=== PATIENT | male | born 1970 | race Caucasian/White ===

== ENCOUNTER 2016-12-13 08:08 | Emergency (ER) | payer MEDICAID, OTHER ==
[~2016-12-13] VITALS: Ht 172.7 cm; Wt 72.7 kg
[2016-12-13] MEDS ORDERED: GENTAMICIN 0.3% OPHTH SOL 5 ML BTL OD ONE (09:00)
[2016-12-13] MEDS ORDERED: TETRACAINE 0.5% OPHTH SOLN 4ML OD ONE (09:00)
[2016-12-13] MEDS ORDERED: FLUORESCEIN OPHTH 1 MG STRIP OD ONE (09:00)
[2016-12-13] MEDS ORDERED: GENT3OPD OD (09:03)
[2016-12-13 09:24] VITALS: BP 149/89
== END 2016-12-13 09:25 | disposition home or self-care (01) ==
LOC: M ED 08:08
DX: T15.01XA Foreign body in cornea, right eye, initial encounter (principal); X58.XXXA Exposure to other specified factors, initial encounter; Y92.89 Other specified places as the place of occurrence of the external cause; Y93.H9 Activity, other involving exterior property and land maintenance, building and construction; Y99.8 Other external cause status; Z87.891 Personal history of nicotine dependence

== ENCOUNTER 2017-11-25 10:38 | Emergency (ER) | payer OTHER | END 2017-11-25 15:26 | disposition home or self-care (01) | LOC: M ED 10:38 | DX: S72.431A Displaced fracture of medial condyle of right femur, initial encounter for closed fracture (principal); X50.9XXA Other and unspecified overexertion or strenuous movements or postures, initial encounter; Y92.89 Other specified places as the place of occurrence of the external cause; F17.210 Nicotine dependence, cigarettes, uncomplicated | CPT/HCPCS: 73564 ==

== ENCOUNTER 2017-12-19 22:04 | Emergency (ER) | payer OTHER ==
[2017-12-19 22:55] LABS: HEMATOCRIT 44.8 % (42.0-52.0); HEMOGLOBIN 15.4 g/dl (13.5-17.5); MEAN CORPUSCULAR HEMOGLOBIN 32.2 pg (27.0-33.0); MEAN CORPUSCULAR HGB CONC 34.4 g/dl (32.0-36.5); MEAN CORPUSCULAR VOLUME 93.7 fl (80.0-96.0); PLATELET COUNT, AUTOMATED 272 10^3/uL (150-450); RED BLOOD COUNT 4.78 10^6/uL (4.30-6.10); RED CELL DISTRIBUTION WIDTH 13.9 % (11.5-14.5); WHITE BLOOD COUNT 8.7 10^3/uL (4.0-10.0)
[2017-12-19 23:16] LABS: ALBUMIN 3.9 GM/DL (3.2-5.2); ALBUMIN/GLOBULIN RATIO 1.03 (1.00-1.93); ALKALINE PHOSPHATASE 83 U/L (45-117); ALT/SGPT 21 U/L (12-78); ANION GAP 8 MEQ/L (8-16); AST/SGOT 17 U/L (7-37); BILIRUBIN,DIRECT < 0.1 MG/DL (0.0-0.2); BILIRUBIN,TOTAL 0.2 MG/DL (0.2-1.0); BLOOD UREA NITROGEN 10 MG/DL (7-18); CALCIUM LEVEL 8.6 MG/DL (8.5-10.1); CARBON DIOXIDE LEVEL 26 MEQ/L (21-32); CHLORIDE LEVEL 108 MEQ/L (98-107); ETHYL ALCOHOL (ETHANOL) 0.295 % (0.000-0.010); GLOMERULAR FILTRATION RATE > 60.0 (>60); GLUCOSE, FASTING 113 MG/DL (70-100); POTASSIUM SERUM 4.1 MEQ/L (3.5-5.1); SALICYLATE LEVEL 2.6 MG/DL (5.0-30.0); SODIUM LEVEL 142 MEQ/L (136-145); TOTAL PROTEIN 7.7 GM/DL (6.4-8.2)
[2017-12-19 23:19] LABS: ACETAMINOPHEN LEVEL < 2.0 UG/ML (10.0-30.0)
[2017-12-19 23:25] LABS: AMPHETAMINES LEVEL URINE NEGATIVE (NEGATIVE); BARBITURATES URINE NEGATIVE (NEGATIVE); BENZODIAZEPINES URINE NEGATIVE (NEGATIVE); CANNABINOIDS URINE NEGATIVE (NEGATIVE); COCAINE METABOLITE URINE NEGATIVE (NEGATIVE); METHADONE URINE NEGATIVE (NEGATIVE); OPIATES URINE NEGATIVE (NEGATIVE); PHENCYCLIDINE URINE NEGATIVE (NEGATIVE)
== END 2017-12-20 08:31 | disposition home or self-care (01) ==
LOC: M ED 22:04
DX: F10.129 Alcohol abuse with intoxication, unspecified (principal); Z72.0 Tobacco use
CPT/HCPCS: 80320

== ENCOUNTER 2018-02-10 11:40 | Emergency (ER) | payer OTHER | END 2018-02-10 14:05 | disposition home or self-care (01) | LOC: M ED 11:40 | DX: J01.90 Acute sinusitis, unspecified (principal); Z72.0 Tobacco use; Z82.49 Family history of ischemic heart disease and other diseases of the circulatory system | CPT/HCPCS: 71046 ==

== ENCOUNTER 2018-05-19 09:55 | Emergency (ER) | payer OTHER ==
[2018-05-19] MEDS: KETOROLAC 60 MG/2 ML VIAL (J1885) IM (11:36)
== END 2018-05-19 11:43 | disposition home or self-care (01) ==
LOC: M ED 09:55
DX: S46.002A Unspecified injury of muscle(s) and tendon(s) of the rotator cuff of left shoulder, initial encounter (principal); X58.XXXA Exposure to other specified factors, initial encounter; Y92.018 Other place in single-family (private) house as the place of occurrence of the external cause; F17.210 Nicotine dependence, cigarettes, uncomplicated
CPT/HCPCS: J1885

== ENCOUNTER 2018-07-08 11:16 | Emergency (ER) | payer OTHER ==
[~2018-07-08] VITALS: Ht 172.7 cm; Wt 66.8 kg
[~2018-07-08 11:16] MED LIST: CEFD300CAP PO; CLAR5TAB7 PO; CYCL10TA PO; DICL75TA PO; GENT3OPD OD
[2018-07-08] MEDS ORDERED: ONDANSETRON 4 MG ORAL DISINTEGRATING TAB (Q0162 PER 1MG) PO ONE (11:30)
--- NOTE | 2018-07-08 11:50 | REP ---
Chest two views HISTORY: Cough Comparison: 02/10/2018 The lungs are clear. The heart is normal in size. The pulmonary vasculature is normal in appearance. The bony structure is intact. IMPRESSION: No acute disease. Electronically Signed by Ector Amaya MD 07/08/2018 11:41 A
[2018-07-08] MEDS ORDERED: MUCI600T37 PO (14:08)
[2018-07-08] MEDS ORDERED: IBUP-1022 PO (14:08)
[2018-07-08] MEDS ORDERED: TESS100C PO (14:08)
[2018-07-08 14:16] VITALS: BP 156/89
--- NOTE | 2018-07-09 17:32 | ECGEPIP ---
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
== END 2018-07-08 14:17 | disposition home or self-care (01) ==
LOC: M ED 11:16
DX: J20.8 Acute bronchitis due to other specified organisms (principal); F17.210 Nicotine dependence, cigarettes, uncomplicated
CPT/HCPCS: 71046; 93005; 99284; Q0162

== ENCOUNTER → 2019-01-23 | Outpatient (CLI) | payer OTHER ==
[~2019-01-23] MED LIST changes: +AMLO5TAB6 PO; +GENT0.3S36 OD; -GENT3OPD OD; +IBUP-1022 PO; +LEVO25TA5 PO; +LISI-542 PO; +MUCI600T37 PO; +TESS100C PO
== END ==
LOC: M OUTALCOH 08:03
PROVIDERS: ATTEND Psychiatry & Neurology Psychiatry
DX: F10.20 Alcohol dependence, uncomplicated (principal)

== ENCOUNTER 2019-02-13 11:00 | Outpatient (RCR) | payer OTHER ==
[~2019-02-13 11:00] MED LIST changes: -AMLO5TAB6 PO; -LEVO25TA5 PO; -LISI-542 PO
== END 2019-02-14 ==
LOC: M OUTALCOH 11:00
PROVIDERS: ATTEND Psychiatry & Neurology Psychiatry
DX: F10.20 Alcohol dependence, uncomplicated (principal); Z72.0 Tobacco use

== ENCOUNTER 2019-03-13 13:00 | Outpatient (RCR) | payer OTHER | END 2019-03-16 | LOC: M OUTALCOH 13:00 | PROVIDERS: ATTEND Psychiatry & Neurology Psychiatry | DX: F10.20 Alcohol dependence, uncomplicated (principal); Z72.0 Tobacco use ==

== ENCOUNTER → 2019-04-02 | Outpatient (REF) | payer OTHER ==
[2019-04-02 12:57] LABS: BASO # 0.1 10^3/uL (0.0-0.2); BASO % 0.8 % (0.0-1.0); EOS # 0.1 10^3/uL (0.0-0.5); EOS % 1.7 % (0.0-3.0); HEMATOCRIT 42.9 % (42.0-52.0); HEMOGLOBIN 14.5 g/dl (13.5-17.5); LYMPH # 1.9 10^3/uL (1.5-5.0); LYMPH % 28.1 % (24.0-44.0); MEAN CORPUSCULAR HEMOGLOBIN 32.1 pg (27.0-33.0); MEAN CORPUSCULAR HGB CONC 33.8 g/dl (32.0-36.5); MEAN CORPUSCULAR VOLUME 94.9 fl (80.0-96.0); MONO # 0.6 10^3/uL (0.0-0.8); MONO % 8.4 % (0.0-5.0); NEUTROPHILS % 60.8 % (36.0-66.0); PLATELET COUNT, AUTOMATED 246 10^3/uL (150-450); RED BLOOD COUNT 4.52 10^6/uL (4.30-6.10); WHITE BLOOD COUNT 6.6 10^3/uL (4.0-10.0)
[2019-04-02 13:27] LABS: ALBUMIN 3.8 GM/DL (3.2-5.2); ALT/SGPT 21 U/L (12-78); BILIRUBIN,TOTAL 0.7 MG/DL (0.2-1.0); BLOOD UREA NITROGEN 11 MG/DL (7-18); CALCIUM LEVEL 8.9 MG/DL (8.5-10.1); CARBON DIOXIDE LEVEL 24 MEQ/L (21-32); CHLORIDE LEVEL 106 MEQ/L (98-107); CHOLESTEROL LEVEL 149 MG/DL (<200); CHOLESTEROL RISK RATIO 3.921 (<5); CREATININE FOR GFR 0.89 MG/DL (0.70-1.30); FREE T4 0.95 NG/DL (0.76-1.46); GLOMERULAR FILTRATION RATE > 60.0 (>56); GLUCOSE, FASTING 98 MG/DL (70-100); HDL CHOLESTEROL 38 MG/DL (>40); LDL CHOLESTEROL 88 MG/DL (<100); NON-HDL-C 111 MG/DL; POTASSIUM SERUM 4.5 MEQ/L (3.5-5.1); SODIUM LEVEL 136 MEQ/L (136-145); TRIGLYCERIDES LEVEL 113 MG/DL (<150)
== END ==
LOC: M SFHCPLAZ 10:33
PROVIDERS: ATTEND Physician Assistant Medical
DX: I10 Essential (primary) hypertension (principal); E03.9 Hypothyroidism, unspecified; Z13.220 Encounter for screening for lipoid disorders; Z12.5 Encounter for screening for malignant neoplasm of prostate

== ENCOUNTER → 2019-04-13 | Outpatient (REF) | payer OTHER | LOC: M SFHCPLAZ 08:42 | PROVIDERS: ATTEND Physician Assistant Medical | DX: E03.9 Hypothyroidism, unspecified (principal) ==

== ENCOUNTER 2019-04-15 16:00 | Outpatient (RCR) | payer OTHER | END 2019-04-16 | LOC: M OUTALCOH 16:00 | PROVIDERS: ATTEND Psychiatry & Neurology Psychiatry | DX: F10.20 Alcohol dependence, uncomplicated (principal); Z72.0 Tobacco use ==

== ENCOUNTER 2019-05-13 15:58 | Outpatient (RCR) | payer OTHER | END 2019-05-16 | LOC: M OUTALCOH 15:58 | PROVIDERS: ATTEND Psychiatry & Neurology Psychiatry | DX: F10.20 Alcohol dependence, uncomplicated (principal); Z72.0 Tobacco use ==

== ENCOUNTER 2019-06-15 16:00 | Outpatient (RCR) | payer OTHER ==
[~2019-06-15 16:00] MED LIST changes: +AMLO5TAB6 PO; +LEVO25TA5 PO; +LISI-542 PO
== END 2019-06-16 ==
LOC: M OUTALCOH 16:00
PROVIDERS: ATTEND Psychiatry & Neurology Psychiatry
DX: F10.20 Alcohol dependence, uncomplicated (principal); Z72.0 Tobacco use

== ENCOUNTER 2019-06-23 08:55 | Day surgery (SDC) | payer OTHER ==
[~2019-06-23] VITALS: Ht 172.7 cm; Wt 62.5 kg
[2019-06-23] MEDS ORDERED: NS 1,000 ML IV ONE (09:00)
[2019-06-23] MEDS ORDERED: LIDOCAINE 2% INJ 100 MG/5 ML SDV (FOR ANES.) As Ordered ONE (09:09)
[2019-06-23] MEDS ORDERED: propofoL 200 MG/20 ML VIAL As Ordered ONE ×2 (09:40→10:44)
--- NOTE | 2019-06-23 11:22 | ROOR ---
Patient Name: Romeo Tinoco Procedure Date: 06/23/2019 10:31 AM Date of : 1970 Age: 48 Room: [facility] Gender: Male Note Status: Finalized Procedure: Colonoscopy Indications: Screening for colorectal malignant neoplasm Providers: Alejandro Crane MD Referring MD: Cat UNGER Requesting Provider: Medicines: Monitored Anesthesia Care Complications: No immediate complications. Procedure: Pre-Anesthesia Assessment: - Prior to the procedure, a History and Physical was performed, and patient medications and allergies were reviewed. The patient is competent. The risks and benefits of the procedure and the sedation options and risks were discussed with the patient. All questions were answered and informed consent was obtained. Patient identification and proposed procedure were verified by the physician, the nurse and the anesthesiologist in the procedure room. Mental Status Examination: alert and oriented. Airway Examination: normal oropharyngeal airway and neck mobility. Respiratory Examination: clear to auscultation. CV Examination: normal. Prophylactic Antibiotics: The patient does not require prophylactic antibiotics. Prior Anticoagulants: The patient has taken no previous anticoagulant or antiplatelet agents. ASA Grade Assessment: II - A patient with mild systemic disease. After reviewing the risks and benefits, the patient was deemed in satisfactory condition to undergo the procedure. The anesthesia plan was to use monitored anesthesia care (MAC). Immediately prior to administration of medications, the patient was re-assessed for adequacy to receive sedatives. The heart rate, respiratory rate, oxygen saturations, blood pressure, adequacy of pulmonary ventilation, and response to care were monitored throughout the procedure. The physical status of the patient was re-assessed after the procedure. The Colonoscope was introduced through the anus and advanced to the terminal ileum, with identification of the appendiceal orifice and IC valve. The colonoscopy was performed without difficulty. The patient tolerated the procedure well. The quality of the bowel preparation was good. The terminal ileum, ileocecal valve, appendiceal orifice, and rectum were photographed. Scope insertion time was 3 minutes. Scope withdrawal time was 11 minutes. The total duration of the procedure was 14 minutes. Findings: The perianal and digital rectal examinations were normal. The terminal ileum appeared normal. Two sessile polyps were found in the transverse colon. The polyps were 3 to 5 mm in size. These polyps were removed with a cold biopsy forceps. Resection and retrieval were complete. Verification of patient identification for the specimen was done by the physician and nurse using the patient's name, date and medical record number. Estimated blood loss was minimal. Multiple small and large-mouthed diverticula were found from sigmoid to transverse colon. There was no evidence of diverticular bleeding. Non-bleeding external and internal hemorrhoids were found during retroflexion. The hemorrhoids were medium-sized. Impression: - The examined portion of the ileum was normal. - Two 3 to 5 mm polyps in the transverse colon, removed with a cold biopsy forceps. Resected and retrieved. - Moderate diverticulosis from sigmoid to transverse colon. There was no evidence of diverticular bleeding. - Non-bleeding external and internal hemorrhoids. Recommendation: - Patient has a contact number available for emergencies. The signs and symptoms of potential delayed complications were discussed with the patient. Return to normal activities tomorrow. Written discharge instructions were provided to the patient. - High fiber diet. - Continue present medications. - Await pathology results. - Repeat colonoscopy in 5-10 years for surveillance based on pathology results. - Telephone GI clinic for pathology results in 2 weeks. - Telephone GI clinic if symptomatic in 1 day. - Return to primary care physician. Alejandro Crane MD Alejandro Crane MD 06/23/2019 11:21:54 AM Electronically signed by Alejandro Crane MD Number of Addenda: 0 Note Initiated On: 06/23/2019 10:31 AM Estimated Blood Loss: Estimated blood loss was minimal.
[2019-06-23 11:30] VITALS: BP 122/79
== END 2019-06-23 12:10 | disposition home or self-care (01) ==
LOC: M OPP 08:55
PROVIDERS: ATTEND Internal Medicine Gastroenterology
DX: Z12.11 Encounter for screening for malignant neoplasm of colon (principal); D12.3 Benign neoplasm of transverse colon; K57.30 Diverticulosis of large intestine without perforation or abscess without bleeding; K64.8 Other hemorrhoids; Z79.899 Other long term (current) drug therapy; F17.210 Nicotine dependence, cigarettes, uncomplicated

== ENCOUNTER → 2019-06-30 | Outpatient (CLI) | payer OTHER ==
--- NOTE | 2019-07-01 04:14 | REPPI ---
Clinical: Viral pneumonia and upper respiratory tract infection . Comparison: 07/08/2018 . Technique: PA and lateral. Findings: The mediastinum and cardiac silhouette are normal. The lung bolanos are clear and without acute consolidation, effusion, or pneumothorax. The skeletal structures are intact and normal. Impression: 1. No acute cardiopulmonary process. Electronically Signed by Erick Olvera MD 07/01/2019 04:06 A
== END ==
LOC: M PLAIMG 09:07
PROVIDERS: ATTEND Physician Assistant Medical
DX: J06.9 Acute upper respiratory infection, unspecified (principal)

== ENCOUNTER 2019-07-13 08:50 | Outpatient (RCR) | payer OTHER | END 2019-07-17 | LOC: M OUTALCOH 08:50 | PROVIDERS: ATTEND Psychiatry & Neurology Psychiatry | DX: F10.20 Alcohol dependence, uncomplicated (principal); Z72.0 Tobacco use ==

== ENCOUNTER → 2019-07-14 | Outpatient (CLI) | payer OTHER ==
--- NOTE | 2019-07-15 04:18 | REP ---
Clinical: Adenopathy. Technique: Real time browning scale ultrasound examination using linear high frequency transducer. Findings: Ultrasound examination along the right and left side of the neck demonstrates no obvious adenopathy, fluid collection or mass lesion. Impression: No obvious abnormality. No obvious cervical adenopathy. Electronically Signed by Erick Olvera MD 07/15/2019 04:10 A
== END ==
LOC: M RAD 16:30
PROVIDERS: ATTEND Physician Assistant Medical
DX: I89.0 Lymphedema, not elsewhere classified (principal)

== ENCOUNTER 2019-07-30 15:57 | Outpatient (RCR) | payer OTHER | END 2019-08-15 | LOC: M OUTALCOH 15:57 | PROVIDERS: ATTEND Psychiatry & Neurology Addiction Medicine | DX: F10.20 Alcohol dependence, uncomplicated (principal); Z72.0 Tobacco use ==

== ENCOUNTER 2019-08-19 14:52 | Emergency (ER) | payer OTHER ==
[~2019-08-19] VITALS: Ht 172.7 cm; Wt 68.6 kg
--- NOTE | 2019-08-19 15:55 | REP ---
Left hand series: Four views. 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 Open fractures second through fourth. Findings: There is a soft tissue and bony tuft amputation of the second distal phalanx. There is a comminuted fracture of the second middle phalanx. There is some soft tissue gas but no soft tissue foreign body seen. The long finger shows a traumatic soft tissue amputation at the distal phalanx. There is a comminuted fracture of the distal tuft. Lateral film demonstrates some missing distal tuft bone along the palmar aspect. In addition, the long finger has a transverse fracture of the middle phalanx with associated swelling. There is soft tissue irregularity and swelling along the palmar aspect of the DIP joint and middle phalanx of the ring finger. No other fracture is evident. Impression: Traumatic soft tissue and bony amputation injuries of the index and long fingers with fractures of the index and long finger middle phalanges as well. Soft tissue injury to the ring finger. No opaque foreign body seen. Electronically Signed by Edis Parikh MD 08/19/2019 05:11 P
[2019-08-19] MEDS ORDERED: MORPHINE 4 MG/ML 1ML VIAL/SYRINGE (J2270) IV ONE (16:15)
[2019-08-19] MEDS ORDERED: ADACEL/BOOSTRIX VACCINE (DIPHTH/PERTUSS/ACELL/TETANUS)0.5ML SYR (90715) IM ONE (16:15)
[2019-08-19] MEDS ORDERED: ONDANSETRON 4MG/2ML VIAL (J2405) IV ONE (16:15)
[2019-08-19] MEDS ORDERED: ceFAZolin SOD 2 GM in IV 1 EA IV ONE (16:30)
[2019-08-19 16:54] LABS: HEMOGLOBIN 14.1 g/dl (13.5-17.5); MEAN CORPUSCULAR HEMOGLOBIN 31.9 pg (27.0-33.0); MEAN CORPUSCULAR HGB CONC 33.6 g/dl (32.0-36.5); PLATELET COUNT, AUTOMATED 289 10^3/uL (150-450); RED BLOOD COUNT 4.42 10^6/uL (4.30-6.10); WHITE BLOOD COUNT 6.2 10^3/uL (4.0-10.0)
[2019-08-19] MEDS ORDERED: LIDOCAINE 1% SDV 5 ML VIAL As Ordered ONE (16:58)
[2019-08-19] MEDS ORDERED: LIDOCAINE 1% MDV 20ML VIAL INFIL ONE (17:00)
[2019-08-19 17:16] LABS: BLOOD UREA NITROGEN 7 MG/DL (7-18); CARBON DIOXIDE LEVEL 27 MEQ/L (21-32); CHLORIDE LEVEL 106 MEQ/L (98-107); CREATININE FOR GFR 0.84 MG/DL (0.70-1.30); GLOMERULAR FILTRATION RATE > 60.0 (>56); GLUCOSE, FASTING 102 MG/DL (70-100); POTASSIUM SERUM 4.1 MEQ/L (3.5-5.1); SODIUM LEVEL 138 MEQ/L (136-145)
[2019-08-19] MEDS ORDERED: KEFL500C17 PO (18:04)
[2019-08-19] MEDS ORDERED: NORC1TAB7 PO (18:13)
[2019-08-19 18:29] VITALS: BP 124/76
--- NOTE | 2019-08-20 15:45 | CR ---
DATE OF CONSULTATION: 08/19/2019 CHIEF COMPLAINT: Left hand injury. HISTORY OF PRESENT ILLNESS: Romeo Tinoco is a 49-year-old right hand dominant male who was working with a snowblower this afternoon when the snowblower jammed. He was using a stick to try to repair the snowblower and unfortunately it sucked the stick in along with his glove. He sustained traumatic partial amputations to his index and middle finger. PHYSICAL EXAMINATION: GENERAL: Well-appearing, in no obvious distress. PULMONARY: Regular nonlabored breathing. CARDIOVASCULAR: Regular radial pulse on the left. MUSCULOSKELETAL: There is an amputation through the distal phalanx of the left index finger and an open fracture of the middle phalanx. There is some soft tissue loss over the volar tip of the finger. In the long finger, there is significant soft tissue loss over the volar distal phalanx but there is no exposed bone. There is also a laceration and open fracture over the middle phalanx. There is a smaller avulsion-type injury over the middle phalanx volarly of the ring finger as well. Fingers are all warm and well-perfused. Sensation is intact proximal to the level of the injury. IMAGING: Radiographs are reviewed. On the index finger, there is a partial fingertip amputation with exposed distal phalanx. There is a comminuted middle phalanx fracture which is open. On the middle, there is a fracture of the distal phalanx but bone is intact. There is also an open fracture of the middle phalanx. IMPRESSION: Left index and middle finger partial amputations with middle phalanx open fractures. PROCEDURE NOTE: After informed consent was obtained, digital blocks were performed to the index and middle fingers. The wounds were copiously irrigated with two liters of normal saline. Following this, I did trim back the exposed bone on the index finger and was able to close the fingertip on the index finger. There was some skin loss but adequate soft tissue in this region that I was able to get an adequate closure. I also closed the open fracture over the middle phalanx volarly. Again, there was some skin loss in this region but I was able to get an adequate closure. In regards to the long finger, there was no significant area of skin that I could close distally. However, there was no exposed bone so this was left to close by second intention. I did close the laceration over the middle phalanx fracture after it had been copiously irrigated and debrided. Adaptic was applied over the fingers and a sterile dressing was applied following this. The patient was then placed into a splint. He also received tetanus shot and IV antibiotics in the emergency room. PLAN: The patient will keep his hand elevated and keep his dressing clean, dry and intact. He will check his fingers for perfusion throughout the day and evening. He will call us or come to the emergency room (ER) if there are any concerns. He will need to remain on Keflex for a week. He will come in in two days for a wound check to see me. He will be given pain medications through the ER. ROLA
== END 2019-08-19 18:34 | disposition home or self-care (01) ==
LOC: M ED 14:52
DX: S61.215A Laceration without foreign body of left ring finger without damage to nail, initial encounter (principal); S68.121A Partial traumatic metacarpophalangeal amputation of left index finger, initial encounter; S68.123A Partial traumatic metacarpophalangeal amputation of left middle finger, initial encounter; S62.623B Displaced fracture of middle phalanx of left middle finger, initial encounter for open fracture; S62.621B Displaced fracture of middle phalanx of left index finger, initial encounter for open fracture; W26.8XXA Contact with other sharp object(s), not elsewhere classified, initial encounter; Y92.018 Other place in single-family (private) house as the place of occurrence of the external cause; I10 Essential (primary) hypertension; E03.9 Hypothyroidism, unspecified; Z79.899 Other long term (current) drug therapy; Z79.890 Hormone replacement therapy; F17.210 Nicotine dependence, cigarettes, uncomplicated
CPT/HCPCS: 12041; 36415; 73130; 80048; 85027; 85730; 86850; 86900; 86901; 90471; 90715; 96365; 96375; 99284; J0690; J2270; J2405

== ENCOUNTER 2019-09-07 08:32 | Outpatient (RCR) | payer OTHER ==
[~2019-09-07 08:32] MED LIST changes: +KEFL500C17 PO; +NORC1TAB7 PO
== END 2019-09-15 ==
LOC: M OUTALCOH 08:32
PROVIDERS: ATTEND Psychiatry & Neurology Addiction Medicine
DX: F10.20 Alcohol dependence, uncomplicated (principal); Z72.0 Tobacco use

== ENCOUNTER 2019-09-25 14:00 | Outpatient (RCR) | payer OTHER ==
[~2019-09-25 14:00] MED LIST changes: +CYCL-707 PO; -CYCL10TA PO
== END 2019-10-15 ==
LOC: M OUTALCOH 14:00
PROVIDERS: ATTEND Psychiatry & Neurology Addiction Medicine
DX: F10.20 Alcohol dependence, uncomplicated (principal); Z72.0 Tobacco use

== ENCOUNTER → 2020-05-05 | Outpatient (REF) | payer MEDICAID ==
[~2020-05-05] MED LIST changes: +AMLO1TAB24 PO; -AMLO5TAB6 PO
[2020-05-05 11:45] LABS: BASO # 0.1 10^3/uL (0.0-0.2); BASO % 1.1 % (0.0-1.0); EOS # 0.1 10^3/uL (0.0-0.5); EOS % 1.4 % (0.0-3.0); HEMATOCRIT 46.2 % (42.0-52.0); HEMOGLOBIN 15.3 g/dl (13.5-17.5); LYMPH # 1.2 10^3/uL (1.5-5.0); LYMPH % 16.6 % (24.0-44.0); MEAN CORPUSCULAR HEMOGLOBIN 32.9 pg (27.0-33.0); MEAN CORPUSCULAR HGB CONC 33.1 g/dl (32.0-36.5); MEAN CORPUSCULAR VOLUME 99.4 fl (80.0-96.0); MONO # 0.8 10^3/uL (0.0-0.8); MONO % 10.6 % (0.0-5.0); NEUTROPHILS # 5.2 10^3/uL (1.5-8.5); NEUTROPHILS % 69.9 % (36.0-66.0); PLATELET COUNT, AUTOMATED 251 10^3/uL (150-450); RED BLOOD COUNT 4.65 10^6/uL (4.30-6.10); WHITE BLOOD COUNT 7.4 10^3/uL (4.0-10.0)
[2020-05-05 12:24] LABS: ALT/SGPT 19 U/L (12-78); BILIRUBIN,TOTAL 0.2 MG/DL (0.2-1.0); BLOOD UREA NITROGEN 18 MG/DL (7-18); CALCIUM LEVEL 9.6 MG/DL (8.5-10.1); CARBON DIOXIDE LEVEL 25 MEQ/L (21-32); CHLORIDE LEVEL 104 MEQ/L (98-107); CHOLESTEROL LEVEL 175 MG/DL (<200); CHOLESTEROL RISK RATIO 2.777 (<5); CREATININE FOR GFR 0.87 MG/DL (0.70-1.30); FREE T4 0.98 NG/DL (0.76-1.46); GLOMERULAR FILTRATION RATE > 60.0 (>56); GLUCOSE, FASTING 111 MG/DL (70-100); HDL CHOLESTEROL 63 MG/DL (>40); LDL CHOLESTEROL 99 MG/DL (<100); NON-HDL-C 112 MG/DL; SODIUM LEVEL 136 MEQ/L (136-145); TOTAL PROTEIN 7.6 GM/DL (6.4-8.2); TRIGLYCERIDES LEVEL 64 MG/DL (<150)
== END ==
LOC: M SFHCPLAZ 09:31
PROVIDERS: ATTEND Physician Assistant Medical
DX: E03.9 Hypothyroidism, unspecified (principal); I10 Essential (primary) hypertension; Z13.220 Encounter for screening for lipoid disorders; Z12.5 Encounter for screening for malignant neoplasm of prostate

== ENCOUNTER 2021-01-04 07:45 | Emergency (ER) | payer OTHER ==
[~2021-01-04] VITALS: Ht 172.7 cm; Wt 66.8 kg
[~2021-01-04 07:45] MED LIST changes: -LISI-542 PO; +LISI-898 PO
[2021-01-04] MEDS ORDERED: COMBIVENT RESPIMAT 100-20MCG INHALER 4GM INH ONE (08:20)
--- NOTE | 2021-01-04 08:30 | REP ---
INDICATION: DYSPNEA/COUGH. COMPARISON: 06/30/2019. TECHNIQUE: Single portable AP view of the chest was performed. FINDINGS: There is no acute infiltrate or pulmonary edema. Lungs are clear. The heart is not significantly enlarged. The mediastinal silhouette is unremarkable. The visualized osseous structures are intact. IMPRESSION: No acute pulmonary disease. <Electronically signed by Rafal Daniels > 01/04/21 [id number]
[2021-01-04 08:40] LABS: BASO # 0.1 10^3/uL (0.0-0.2); BASO % 0.8 % (0.0-1.0); EOS # 0.1 10^3/uL (0.0-0.5); EOS % 1.7 % (0.0-3.0); HEMATOCRIT 44.4 % (42.0-52.0); HEMOGLOBIN 14.9 g/dl (13.5-17.5); LYMPH # 1.3 10^3/uL (1.5-5.0); LYMPH % 18.2 % (24.0-44.0); MEAN CORPUSCULAR HEMOGLOBIN 32.7 pg (27.0-33.0); MEAN CORPUSCULAR HGB CONC 33.6 g/dl (32.0-36.5); MEAN CORPUSCULAR VOLUME 97.4 fl (80.0-96.0); MONO % 13.1 % (2.0-8.0); NEUTROPHILS # 4.8 10^3/uL (1.5-8.5); NEUTROPHILS % 65.9 % (36.0-66.0); RED BLOOD COUNT 4.56 10^6/uL (4.30-6.10); WHITE BLOOD COUNT 7.3 10^3/uL (4.0-10.0)
[2021-01-04 08:56] LABS: ALT/SGPT 30 U/L (12-78); BLOOD UREA NITROGEN 8 MG/DL (7-18); CARBON DIOXIDE LEVEL 27 MEQ/L (21-32); CHLORIDE LEVEL 106 MEQ/L (98-107); CK-MB VALUE MASS 1.2 NG/ML (<3.6); CPK CREATINE PHOSPHOKINASE 118 U/L (39-308); CREATININE FOR GFR 0.82 MG/DL (0.70-1.30); GLOMERULAR FILTRATION RATE > 60.0 (>56); GLUCOSE, FASTING 102 MG/DL (70-100); MB/CK RELATIVE INDEX 1.02 (< OR =4); POTASSIUM SERUM 3.6 MEQ/L (3.5-5.1); SODIUM LEVEL 140 MEQ/L (136-145)
[2021-01-04 08:57] LABS: ALBUMIN 3.9 GM/DL (3.2-5.2); BILIRUBIN,DIRECT 0.2 MG/DL (0.0-0.2); BILIRUBIN,TOTAL 0.7 MG/DL (0.2-1.0); NT-PRO BNP 138 PG/ML (<125); TOTAL PROTEIN 7.8 GM/DL (6.4-8.2); TROPONIN I < 0.02 NG/ML (< 0.10)
[2021-01-04 09:12] LABS: PLATELET COUNT, AUTOMATED 251 10^3/uL (150-450)
[2021-01-04] MEDS ORDERED: ISOVUE-370 76% 100ML VIAL As Ordered ONE (09:38)
[2021-01-04] MEDS ORDERED: IPRATROPIUM 0.5MG/ALBUTEROL 2.5MG INH SOL UD 3ML (DUONEB) NEB ONE (10:20)
--- NOTE | 2021-01-04 10:26 | REP ---
INDICATION: SOB. COMPARISON: Comparison portable chest x-ray from earlier this date.. TECHNIQUE: Contrast dose: 75 ML of Isovue [address] technique: Helical scanning is acquired and overlapping 1.5 mm and contiguous 3 mm axial images are reformatted. In addition, maximum intensity projection and multiplanar re-formation images are generated in sagittal and coronal imaging projections. FINDINGS: There is good opacification in the pulmonary arterial tree. There is no evidence of vessel cut off or filling defect to suggest pulmonary embolus. Homogeneous opacity is seen in the thoracic aorta. There is no evidence of aneurysm or dissection. There is no evidence of pleural or pericardial effusion. No hilar or mediastinal mass or adenopathy is observed. Lung window settings demonstrate no evidence of infiltrate. There is a single 3.4 mm noncalcified pulmonary nodule in a peribronchovascular position in the right upper lobe somewhat posteriorly. This projects on page 43 of 116 in series 402 of today's examination. No other pulmonary nodule is appreciated. In the upper abdomen, normal adrenals are observed. The visualized upper abdominal structures are unremarkable. No acute bony abnormality. IMPRESSION: No CT evidence of pulmonary embolus. There is a single 3 mm noncalcified pulmonary nodule in the right upper lobe. If this patient is considered at risk for pulmonary malignancy, repeat chest CT study could be performed in 1 year. Otherwise no active disease. <Electronically signed by Saran Parikh > 01/04/21 [id number]
[2021-01-04 10:57] VITALS: O2SAT 97
[2021-01-04 13:00] VITALS: BP 170/93
--- NOTE | 2021-01-04 17:24 | ECGEPIP ---
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
--- NOTE | 2021-01-07 06:27 | ED PDOC ---
Post-Departure Follow-Up cta chest faxed to [facility] for fu Dyan Gonsalez MD Jan 07, 2021 06:27
== END 2021-01-04 13:27 | disposition left against medical advice (07) ==
LOC: M ED 07:45
DX: R91.1 Solitary pulmonary nodule (principal); I10 Essential (primary) hypertension; E07.9 Disorder of thyroid, unspecified; F10.10 Alcohol abuse, uncomplicated; F17.210 Nicotine dependence, cigarettes, uncomplicated
CPT/HCPCS: 36415; 71045; 71275; 80048; 80076; 82550; 82553; 83880; 84443; 85025; 85379; 87798; 93005; 93041; 94640; 94760; 99285; Q9967

== ENCOUNTER 2021-10-24 08:18 | Emergency (ER) | payer MEDICAID, OTHER ==
[~2021-10-24] VITALS: Ht 172.7 cm; Wt 63.6 kg
[~2021-10-24 08:18] MED LIST changes: -LISI-898 PO; +LISI5TAB11 PO
[2021-10-24 10:53] VITALS: BP 158/105
== END 2021-10-24 10:54 | disposition home or self-care (01) ==
LOC: M ED 08:18
DX: S23.41XA Sprain of ribs, initial encounter (principal); W01.198A Fall on same level from slipping, tripping and stumbling with subsequent striking against other object, initial encounter; Y92.009 Unspecified place in unspecified non-institutional (private) residence as the place of occurrence of the external cause; Y93.9 Activity, unspecified; Y99.9 Unspecified external cause status; I10 Essential (primary) hypertension; F17.200 Nicotine dependence, unspecified, uncomplicated; Z79.899 Other long term (current) drug therapy

== ENCOUNTER → 2021-11-20 | Outpatient (CLI) | payer OTHER, MEDICAID ==
[2021-11-20 17:30] LABS: BASO # 0.1 10^3/uL (0.0-0.2); EOS % 0.5 % (0.0-3.0); HEMATOCRIT 42.5 % (42.0-52.0); HEMOGLOBIN 14.3 g/dl (13.5-17.5); LYMPH # 1.4 10^3/uL (1.5-5.0); LYMPH % 24.2 % (24.0-44.0); MEAN CORPUSCULAR HEMOGLOBIN 32.1 pg (27.0-33.0); MEAN CORPUSCULAR HGB CONC 33.6 g/dl (32.0-36.5); MEAN CORPUSCULAR VOLUME 95.5 fl (80.0-96.0); MONO # 0.5 10^3/uL (0.0-0.8); MONO % 8.3 % (2.0-8.0); NEUTROPHILS # 3.9 10^3/uL (1.5-8.5); NEUTROPHILS % 65.7 % (36.0-66.0); PLATELET COUNT, AUTOMATED 259 10^3/uL (150-450); RED BLOOD COUNT 4.45 10^6/uL (4.30-6.10); WHITE BLOOD COUNT 5.9 10^3/uL (4.0-10.0)
[2021-11-20 18:02] LABS: ALBUMIN 3.9 GM/DL (3.2-5.2); ALT/SGPT 23 U/L (12-78); BILIRUBIN,TOTAL 0.3 MG/DL (0.2-1.0); BLOOD UREA NITROGEN 15 MG/DL (7-18); CALCIUM LEVEL 9.5 MG/DL (8.5-10.1); CARBON DIOXIDE LEVEL 29 MEQ/L (21-32); CHLORIDE LEVEL 106 MEQ/L (98-107); CHOLESTEROL LEVEL 140 MG/DL (<200); CHOLESTEROL RISK RATIO 1.866 (<5); FREE T4 0.84 NG/DL (0.76-1.46); GLOMERULAR FILTRATION RATE > 60.0 (>56); GLUCOSE, FASTING 102 MG/DL (70-100); HDL CHOLESTEROL 75 MG/DL (>40); LDL CHOLESTEROL 45 MG/DL (<100); NON-HDL-C 65 MG/DL; POTASSIUM SERUM 4.7 MEQ/L (3.5-5.1); SODIUM LEVEL 141 MEQ/L (136-145); TOTAL PROTEIN 7.5 GM/DL (6.4-8.2); TRIGLYCERIDES LEVEL 99 MG/DL (<150)
== END ==
LOC: M PLALAB 14:23
PROVIDERS: ATTEND Nurse Practitioner Family
DX: I10 Essential (primary) hypertension (principal)

== ENCOUNTER → 2022-03-28 | Outpatient (REF) | payer OTHER, MEDICAID | LOC: M SFHCPLAZ 16:44 | PROVIDERS: ATTEND Physician Assistant | DX: R06.02 Shortness of breath (principal) ==

== ENCOUNTER 2022-04-16 16:08 | Emergency (ER) | payer MEDICAID, OTHER ==
[~2022-04-16] VITALS: Ht 172.7 cm; Wt 66.8 kg
[2022-04-16 16:09] VITALS: BP 168/94
[2022-04-16] MEDS ORDERED: NORCO, ANEXSIA 5/325MG TABLET (HYDROcodone/ACETAMINOPHEN) PO ONE (18:25)
[2022-04-16] MEDS ORDERED: PERC5TAB12 PO (20:19)
== END 2022-04-16 20:50 | disposition home or self-care (01) ==
LOC: M ED 16:08
DX: S92.002A Unspecified fracture of left calcaneus, initial encounter for closed fracture (principal); W17.2XXA Fall into hole, initial encounter; Y93.02 Activity, running; Y92.410 Unspecified street and highway as the place of occurrence of the external cause; I10 Essential (primary) hypertension; Z79.899 Other long term (current) drug therapy

== ENCOUNTER → 2022-04-23 | Outpatient (CLI) | payer OTHER, MEDICAID ==
[~2022-04-23] MED LIST changes: +PERC5TAB12 PO
[2022-04-23 13:58] LABS: BASO # 0.1 10^3/uL (0.0-0.2); EOS # 0.1 10^3/uL (0.0-0.5); EOS % 1.2 % (0.0-3.0); HEMATOCRIT 46.7 % (42.0-52.0); HEMOGLOBIN 15.4 g/dl (13.5-17.5); LYMPH # 1.6 10^3/uL (1.5-5.0); LYMPH % 26.6 % (24.0-44.0); MEAN CORPUSCULAR HEMOGLOBIN 32.1 pg (27.0-33.0); MEAN CORPUSCULAR VOLUME 97.3 fl (80.0-96.0); MONO # 0.6 10^3/uL (0.0-0.8); NEUTROPHILS # 3.6 10^3/uL (1.5-8.5); NEUTROPHILS % 60.9 % (36.0-66.0); PLATELET COUNT, AUTOMATED 401 10^3/uL (150-450); WHITE BLOOD COUNT 5.9 10^3/uL (4.0-10.0)
[2022-04-23 15:54] LABS: ALT/SGPT 26 U/L (12-78); BILIRUBIN,TOTAL 0.4 MG/DL (0.2-1.0); BLOOD UREA NITROGEN 10 MG/DL (7-18); CARBON DIOXIDE LEVEL 28 MEQ/L (21-32); CHLORIDE LEVEL 107 MEQ/L (98-107); CREATININE FOR GFR 1.01 MG/DL (0.70-1.30); FERRITIN 316 NG/ML (26-388); FREE T4 1.04 NG/DL (0.76-1.46); GLOMERULAR FILTRATION RATE > 60.0 (>56); GLUCOSE, FASTING 98 MG/DL (70-100); MAGNESIUM LEVEL 2.1 MG/DL (1.8-2.4); NT-PRO BNP 16 PG/ML (<125); POTASSIUM SERUM 5.1 MEQ/L (3.5-5.1); SODIUM LEVEL 141 MEQ/L (136-145); THYROID STIMULATING HORMONE 0.973 uIU/ML (0.358-3.740); TOTAL PROTEIN 7.9 GM/DL (6.4-8.2)
== END ==
LOC: M PLALAB 09:55
PROVIDERS: ATTEND Family Medicine
DX: I10 Essential (primary) hypertension (principal)

== ENCOUNTER → 2022-09-11 | Outpatient (REF) | payer OTHER | LOC: M SFHCPLAZ 13:01 | PROVIDERS: ATTEND Physician Assistant | DX: J40 Bronchitis, not specified as acute or chronic (principal) ==

== ENCOUNTER 2022-10-23 08:36 | Emergency (ER) | payer OTHER ==
[~2022-10-23] VITALS: Ht 172.7 cm; Wt 59.0 kg
[2022-10-23] MEDS ORDERED: ACET-683 PO (09:00)
[2022-10-23] MEDS ORDERED: amLODIPine 5 MG TAB PO ONE (09:05)
[2022-10-23] MEDS ORDERED: lisinopriL 5 MG TAB PO ONE (09:05)
[2022-10-23 11:13] VITALS: BP 160/84
== END 2022-10-23 11:17 | disposition home or self-care (01) ==
LOC: M ED 08:36
DX: S93.602A Unspecified sprain of left foot, initial encounter (principal); X50.0XXA Overexertion from strenuous movement or load, initial encounter; I10 Essential (primary) hypertension; F17.200 Nicotine dependence, unspecified, uncomplicated; Z79.899 Other long term (current) drug therapy

== ENCOUNTER → 2022-12-04 | Outpatient (CLI) | payer OTHER ==
[~2022-12-04] MED LIST changes: +ACET-683 PO
== END ==
LOC: M PLAIMG 11:21
PROVIDERS: ATTEND Nurse Practitioner Family
DX: R06.00 Dyspnea, unspecified (principal)

== ENCOUNTER → 2023-09-26 | Outpatient (REF) | payer OTHER, MEDICAID | LOC: M SFHCPLAZ 15:20 | PROVIDERS: ATTEND Student in an Organized Health Care Education/Training Program | DX: R09.89 Other specified symptoms and signs involving the circulatory and respiratory systems (principal) ==

== ENCOUNTER → 2023-09-26 | Outpatient (CLI) | payer MEDICAID, OTHER | LOC: M PLAIMG 16:11 | PROVIDERS: ATTEND Student in an Organized Health Care Education/Training Program | DX: R09.89 Other specified symptoms and signs involving the circulatory and respiratory systems (principal) ==

== ENCOUNTER 2024-03-17 09:09 | Emergency (ER) | payer MEDICAID, OTHER ==
[~2024-03-17] VITALS: Ht 172.7 cm; Wt 58.0 kg
[2024-03-17 09:14] VITALS: TEMP 97.6; O2SAT 98
[2024-03-17] MEDS: KETOROLAC 60MG 2ML VIAL IM ONE (11:55)
[2024-03-17] MEDS: methocarbamoL 750 MG TAB PO ONE (11:55)
[2024-03-17] MEDS: lisinopriL 5 MG TAB PO ONE (12:12)
[2024-03-17] MEDS: amLODIPine 5 MG TAB PO ONE (12:12)
[2024-03-17] MEDS ORDERED: METH-1164 PO (13:05)
[2024-03-17 13:50] VITALS: BP 181/91
== END 2024-03-17 14:30 | disposition home or self-care (01) ==
LOC: M ED 09:09
DX: M54.50 Low back pain, unspecified (principal); I10 Essential (primary) hypertension; E03.9 Hypothyroidism, unspecified; F17.210 Nicotine dependence, cigarettes, uncomplicated; Z79.1 Long term (current) use of non-steroidal anti-inflammatories (NSAID); Z79.899 Other long term (current) drug therapy
CPT/HCPCS: 96372; 99283; J1885

== ENCOUNTER 2024-07-09 09:59 | Emergency (ER) | payer MEDICAID, OTHER ==
[~2024-07-09] VITALS: Ht 172.7 cm; Wt 58.0 kg
[~2024-07-09 09:59] MED LIST changes: +METH-1164 PO
[2024-07-09 10:55] VITALS: BP 179/104
[2024-07-09] MEDS: CHLORTHALIDONE 25 MG TAB PO ONE (10:55)
[2024-07-09] MEDS: amLODIPine 5 MG TAB PO ONE (10:56)
[2024-07-09 11:03] LABS: BASO # 0.1 10^3/uL (0.0-0.2); BASO % 0.5 % (0.0-1.0); EOS # 0.1 10^3/uL (0.0-0.5); EOS % 0.6 % (0.0-3.0); HEMATOCRIT 45.8 % (42.0-52.0); HEMOGLOBIN 15.8 g/dl (13.5-17.5); LYMPH # 0.9 10^3/uL (1.5-5.0); LYMPH % 8.2 % (24.0-44.0); MEAN CORPUSCULAR HGB CONC 34.5 g/dl (32.0-36.5); MEAN CORPUSCULAR VOLUME 92.9 fl (80.0-96.0); NEUTROPHILS # 8.9 10^3/uL (1.5-8.5); NEUTROPHILS % 81.4 % (36.0-66.0); PLATELET COUNT, AUTOMATED 267 10^3/uL (150-450); RED BLOOD COUNT 4.93 10^6/uL (4.30-6.10); WHITE BLOOD COUNT 10.9 10^3/uL (4.0-10.0)
[2024-07-09] MEDS: GASTROGRAFIN SOLUTION 30ML PO SCH (11:06)
[2024-07-09 11:27] LABS: BLOOD UREA NITROGEN 10 MG/DL (9-23); CALCIUM LEVEL 9.1 MG/DL (8.5-10.1); CARBON DIOXIDE LEVEL 24 MMOL/L (20-31); CHLORIDE LEVEL 108 MMOL/L (98-107); GLOMERULAR FILTRATION RATE > 60.0 (>56); GLUCOSE, FASTING 120 MG/DL (60-100); POTASSIUM SERUM 3.9 MMOL/L (3.5-5.1); SODIUM LEVEL 138 MMOL/L (136-145)
[2024-07-09] MEDS ORDERED: ISOVUE-370 76% 100ML VIAL As Ordered ONE (12:14)
[2024-07-09] MEDS ORDERED: HOME MED LIST COMPLETE! XX SCH (12:20)
[2024-07-09 14:28] VITALS: BP 177/97; TEMP 97.2; O2SAT 99
== END 2024-07-09 14:36 | disposition home or self-care (01) ==
LOC: M ED 09:59
DX: K40.20 Bilateral inguinal hernia, without obstruction or gangrene, not specified as recurrent (principal); I10 Essential (primary) hypertension; J44.9 Chronic obstructive pulmonary disease, unspecified; F17.210 Nicotine dependence, cigarettes, uncomplicated; F10.10 Alcohol abuse, uncomplicated; Z79.899 Other long term (current) drug therapy
CPT/HCPCS: 36415; 74177; 80048; 83605; 85025; 99284; Q9963; Q9967

== ENCOUNTER → 2024-08-14 | Outpatient (CLI) | payer OTHER | LOC: M RAD 14:56 | DX: K40.90 Unilateral inguinal hernia, without obstruction or gangrene, not specified as recurrent (principal) ==

== ENCOUNTER 2024-09-10 11:36 | Day surgery (SDC) | payer OTHER ==
[~2024-09-10] VITALS: Ht 172.7 cm; Wt 61.5 kg
[~2024-09-10 11:36] MED LIST changes: +CHLO125TA PO; +LISI20TA33 PO
[2024-09-10] MEDS: LR 1,000 ML IV SCH (12:53)
[2024-09-10] MEDS ORDERED: LIDOCAINE 2% 100MG/5ML SDV (FOR ANES.) As Ordered ONE (13:07)
[2024-09-10] MEDS ORDERED: propofoL 200 MG/20 ML VIAL As Ordered ONE (13:07)
[2024-09-10] MEDS ORDERED: ROCURONIUM BROMIDE 50MG/5ML VIAL As Ordered ONE (13:07)
[2024-09-10] MEDS ORDERED: ONDANSETRON 4MG 2ML VIAL As Ordered ONE (13:07)
[2024-09-10] MEDS ORDERED: KETOROLAC 30 MG/ML 1ML VIAL As Ordered ONE (13:07)
[2024-09-10] MEDS ORDERED: SUGAMMADEX SODIUM 500 MG/5 ML VIAL (BRIDION) As Ordered ONE (13:07)
[2024-09-10] MEDS ORDERED: fentaNYL 100 MCG/2 ML INJECTION As Ordered ONE (13:16)
[2024-09-10] MEDS ORDERED: MIDAZOLAM INJ 2MG/2ML VIAL As Ordered ONE (13:17)
[2024-09-10] MEDS: ceFAZolin SOD 2 GM IV ONCE IV ONE (14:47)
[2024-09-10] MEDS ORDERED: ACETAMINOPHEN 1000MG/100ML IV BAG As Ordered ONE (14:50)
[2024-09-10] MEDS: HEPARIN SOD (PORCINE) 5000UNITS/ML 1ML VIAL/SYRINGE SQ ONE (14:56)
[2024-09-10] MEDS ORDERED: fentaNYL 100 MCG/2 ML INJECTION IV PRN (16:45)
[2024-09-10] MEDS: ONDANSETRON 4MG 2ML VIAL IV PRN (17:06)
[2024-09-10] MEDS: oxyCODONE 5MG TAB PO PRN (17:06)
[2024-09-10 18:20] VITALS: BP 162/79; TEMP 98.3; O2SAT 100
== END 2024-09-10 18:25 | disposition home or self-care (01) ==
LOC: M SDC 11:36
PROVIDERS: ATTEND Surgery
DX: K40.90 Unilateral inguinal hernia, without obstruction or gangrene, not specified as recurrent (principal); I10 Essential (primary) hypertension; E03.9 Hypothyroidism, unspecified; Z79.899 Other long term (current) drug therapy; F17.210 Nicotine dependence, cigarettes, uncomplicated
CPT/HCPCS: 49507; 93005; C1781; J0131; J0665; J0690; J1100; J1885; J2250; J2405; J3010; S2900